=== PATIENT | female | born 1965 | race Caucasian/White ===

== ENCOUNTER → 2017-05-26 09:24 | Outpatient (CLI) | payer SELFPAY ==
--- NOTE | 2017-05-26 09:27 | HPBI_ITS ---
MAMMOGRAPHY - BILATERAL SCREENING REASON FOR EXAM: Female, 51 years old. Routine annual screening examination. PERTINENT HISTORY: Non-contributory. TECHNIQUE: Digital bilateral breast enmanuel (3D mammographic acquisition) in the CC and MLO projections. 2-D mediolateral oblique (MLO) and craniocaudad (CC) views of both breasts were obtained. CAD: Full Field Digital Mammography with Computer Added Detection was performed. COMPARISON: Comparison is made with prior study dated November 02, 2015 and January 31, 2011. FINDINGS: Breast Composition: There are scattered areas of fibroglandular density. There are no dominant masses or suspicious calcifications. Stable benign-appearing bilateral axillary lymph nodes. No other significant abnormalities are identified. There has been no significant change since the prior study. HPBI/SCREENING MAMM (CAD), BILAT IMPRESSION: Stable bilateral screening mammogram. Yearly follow-up mammogram recommended. (A) ASSESSMENT CATEGORY: BIRADS Category 2: Benign. A letter regarding these results will be sent to the patient by the facility within 30 days. Approximately 10% of breast cancers are not detected by mammography. A normal mammogram should not delay biopsy of a clinically suspicious abnormality. [id number] Electronically Signed: Jax Mathis MD at 10:36 EST Tel [phone], Service support ,
== END ==
PROVIDERS: Family Provider Nurse Practitioner Family; PCP Nurse Practitioner Family; Visit Provider Obstetrics & Gynecology
DX: Z12.31 Encounter for screening mammogram for malignant neoplasm of breast (principal)
CPT/HCPCS: 77063; 77067

== ENCOUNTER → 2018-07-27 | Outpatient (CLI) | payer SELFPAY ==
[2018-07-30 13:08] LABS: HPV Reflexed? NOT INDICATED
== END | disposition home or self-care (01) ==
LOC: LABSPEC 13:31
PROVIDERS: Visit Provider Obstetrics & Gynecology
DX: Z12.4 Encounter for screening for malignant neoplasm of cervix (principal)
CPT/HCPCS: 88175; G0145

== ENCOUNTER → 2018-08-03 | Outpatient (CLI) | payer SELFPAY ==
--- NOTE | 2018-08-03 10:40 | BI_ITS ---
MAMMOGRAPHY - BILATERAL SCREENING REASON FOR EXAM: Female, 52 years old. Routine annual screening examination. PERTINENT HISTORY: Non-contributory. TECHNIQUE: Digital bilateral breast enmanuel (3D mammographic acquisition) in the CC and MLO projections. 2-D mediolateral oblique (MLO) and craniocaudad (CC) views of both breasts were obtained. CAD: Full Field Digital Mammography with Computer Added Detection was performed. COMPARISON: Comparison is made with prior study dated May 26, 2017 and November 02, 2015. FINDINGS: Breast Composition: There are scattered areas of fibroglandular density. There are no dominant masses or suspicious calcifications. Stable benign-appearing bilateral axillary lymph nodes. No other significant abnormalities are identified. There has been no significant change since the prior study. BI/SCREENING MAMM (CAD), BILAT IMPRESSION: Stable bilateral screening mammogram. Yearly follow-up mammogram recommended. (A) ASSESSMENT CATEGORY: BIRADS Category 2: Benign. A letter regarding these results will be sent to the patient by the facility within 30 days. Approximately 10% of breast cancers are not detected by mammography. A normal mammogram should not delay biopsy of a clinically suspicious abnormality. [id number] Electronically Signed: Jax Mathis, at 14:14 EDT , Service support ,
== END | disposition home or self-care (01) ==
LOC: OPBI 10:36
PROVIDERS: Referring Provider Obstetrics & Gynecology; Visit Provider Obstetrics & Gynecology
DX: Z12.31 Encounter for screening mammogram for malignant neoplasm of breast (principal)
CPT/HCPCS: 77063; 77067

== ENCOUNTER → 2020-01-04 08:34 | Outpatient (CLI) | payer SELFPAY ==
--- NOTE | 2020-01-04 08:39 | BI_ITS ---
MAMMOGRAPHY - BILATERAL SCREENING REASON FOR EXAM: Female, 54 years old. Routine annual screening examination. PERTINENT HISTORY: Non-contributory. TECHNIQUE: Digital bilateral breast lukasz (3D mammographic acquisition) in the CC and MLO projections. 2-D mediolateral oblique (MLO) and craniocaudad (CC) views of both breasts were obtained. CAD: Full Field Digital Mammography with Computer Added Detection was performed. COMPARISON: Comparison is made with prior examination dated 08/03/2018 and 05/26/2017. FINDINGS: Breast Composition: There are scattered areas of fibroglandular density. There are no dominant masses or suspicious calcifications. Stable benign-appearing bilateral axillary lymph nodes. No other significant abnormalities are identified. There has been no significant change since the prior study. BI/SCREEN MAMM (CAD) W/LUKASZ BILAT IMPRESSION: Stable bilateral screening mammogram. Yearly follow-up mammogram recommended. (A) ASSESSMENT CATEGORY: BIRADS Category 2: Benign. A letter regarding these results will be sent to the patient by the facility within 30 days. Approximately 10% of breast cancers are not detected by mammography. A normal mammogram should not delay biopsy of a clinically suspicious abnormality. [id number] Electronically Signed: Jax Mathis, at 9:48 EDT , Service support ,
== END ==
PROVIDERS: PCP Nurse Practitioner Family; Referring Provider Student in an Organized Health Care Education/Training Program; Visit Provider Student in an Organized Health Care Education/Training Program
DX: Z12.31 Encounter for screening mammogram for malignant neoplasm of breast (principal)
CPT/HCPCS: 77063; 77067

== ENCOUNTER 2021-04-18 05:30 | Day surgery (SDC) | payer SELFPAY ==
--- NOTE | 2021-04-16 12:05 | EKG12_ITS ---
Test Reason : PRE OP Blood Pressure : / mmHG Vent. Rate : 069 BPM Atrial Rate : 069 BPM P-R Int : 134 ms QRS Dur : 070 ms QT Int : 388 ms P-R-T Axes : 023 041 014 degrees QTc Int : 415 ms Normal sinus rhythm Normal ECG Confirmed by JANESSA MAHAN, ELFEGO ([id number]), desk editor OSMEL ZELAYA ([id number]) on 04/17/2021 9:50:52 AM Referred By: Darlene Rm Confirmed By:ELFEGO RIDDLE MD
[2021-04-16 13:37] LABS: Hematocrit 44.3 % (37-47); Hemoglobin 14.2 g/dL (12.0-15.0); Mean Corp Hgb Conc 32.1 g/dL (32-36); Mean Corpuscular Hgb 31.4 pg (27.0-32.0); Mean Platelet Vol. 10.3 fl (6.2-12.0); Platelet Count 344 K/mm3 (150-450); RBC Distribution Width CV 12.3 % (11.6-14.6); RBC Distribution Width SD 44.3 fl (35.1-43.9); Red Blood Count 4.52 M/mm3 (4.2-5.4); White Blood Count 7.9 K/mm3 (4.4-11.0)
[2021-04-16 14:01] LABS: Magnesium 2.4 mg/dL (1.6-2.6)
[2021-04-18] VITALS (13 sets, daily range): BP systolic 93–122; BP diastolic 60–72; PULSE 69–94; RESP 14–16; TEMP 36.3–36.9; O2SAT 91–99; BMI 39.0
[2021-04-18] MEDS: Acetaminophen 500 MG Tablet 1000 MG PO (06:17)
[2021-04-18] MEDS: Celecoxib 200 MG Capsule 400 MG PO (06:17)
[2021-04-18] MEDS: Gabapentin 600 MG Tablet PO (06:17)
[2021-04-18] MEDS: Enoxaparin 40 MG/0.4 ML Syringe SC (06:17)
[2021-04-18 06:25] LABS: Internal QC Validated? YES +Cl - CLEAR BKGD; Pregnancy, Urine Negative Negative
[2021-04-18] MEDS: Lactated Ringers 1,000 ML 40 ML IV (06:48)
--- NOTE | 2021-04-18 06:59 | PCM.HP.BLA ---
History and Physical Date of Admission: 04/18/21 HISTORY OF PRESENT ILLNESS: 55 yo female with history of abnormal uterine bleeding, interfering with daily life. History of ablation. MEDICAL HISTORY: 1. Depression 2. GERD ALLERGIES: NKDA MEDICATIONS HISTORY: 1. Prozac 10 mg capsule, 1 tab daily: 2. omeprazole 20 mg tablet,delayed release, One pill by mouth once a day SURGICAL HISTORY: 1. 2005 - jaw...TMJ surgery 2. 02/27/2016 Dx laparoscopy with ruptured of left ovarian endometrioma and hs, D and C, Evelina ablation Judy Linares M.D. 3. 02/12/2017 small toe on right foot MENSTRUAL HISTORY: LMP Known?- DefiniteAmount/Duration - 5 days, Regularity - Irregular, Frequency - variable days, Prior Menses - 02/20/2021, LMP - 03/04/21, Age Onset Menarche - 14 PAST PREGNANCIES: Total Pregnancies - 4; Full Term Pregnancies - 3; Premature - 0; Abortions, Induced - 0; Abortions, Spontaneous - 1; Ectopics - 0; Multiple Births - 0; Living Children - 3 FAMILY HISTORY: ovarian cancer, [place] SOCIAL HISTORY: Alcohol Use - None Smoking - Never Drug Use - Denies REVIEW OF SYSTEMS: GENERAL - sleep disturbance SKIN - Denies skin changes EYES - wears eye glasses and wears contact lenses EARS - Denies difficulty hearing NOSE - Denies nasal congestion or bleeding MOUTH - Denies sore throat or difficulty swallowing NECK - Denies pain or swelling RESPIRATORY - Denies shortness of breath or wheezing CARDIOVASCULAR - Denies palpitations or chest pain GASTROINTESTINAL - Denies nausea, vomiting, diarrhea, constipation GENITOURINARY - Denies dysuria, frequency of urination, incontinence of urine MUSCULOSKELETAL - Denies joint or muscle pain NEUROLOGICAL - Denies localized numbness or weakness PSYCHIATRIC - On prozac for mood issues ENDOCRINE - fatigue and weight gain HEMATO-IMMUNOLOGIC - Denies excesive bleeding with cuts PHYSICAL EXAMINATION BP- 128/80 Sitting, Right arm, regular cuff Weight- 213.0 lbs Height- 63.0 inch BMI:37.73 CONSTITUTIONAL - NAD, well nourished, and well developed SKIN - No rash, lesions, or ulcers HEENT - Normocephalic, PERRLA, EOMI NECK - No nodes, no nuchal rigidity and thyroid normal size and texture LYMPH NODES - Palpation of lymph nodes in neck and groins within normal limits LUNGS - CTA x2 without wheezes, crackles or rales CARDIAC - Regular rate and rhythm without rubs, murmurs, or gallops ABDOMEN - Without hepatosplenomegaly, distention, masses, rebound, or guarding; normal bowel sounds; no hernias EXTREMITIES - No edema or calf tenderness NEUROLOGICAL - Cranial nerves II-XII grossly intact PSYCHIATRIC - A and O to time, place, person, mood and affect ASSESSMENT: PLAN BY DIAGNOSIS: 1. Abnormal Uterine And Vaginal Bleeding, Unspecified Reports irregular bleeding. Almost daily spotting, mostly brown. Interfering with daily life. Discussed risks/benefits of oophorectomy. Decreases risk of reoperation with oophorectomy. Pt aware that although she is perimenopausal, ovaries continue to excrete low levels of hormone. Elects for oophorectomy. Risks/benefits/alternatives discussed. Risks include, but are not limited to: risk of bleeding to the point of transfusion, infection, injury to surrounding tissue (bowel/bladder/major abdominal vessels), VTE, ICU admission. Consent signed.
[2021-04-18] MEDS: Ondansetron 4 MG/2 ML Vial IV (07:00)
[2021-04-18 07:05] LABS: Bedside Glucose 79 mg/dL (70-110)
--- NOTE | 2021-04-18 07:30 | HYST_PTH ---
PATIENT: KERRI PETER LOC: [facility] [place] U#:[id number] AGE/SX: 55/F ROOM: RE04/18/[address]: Dr. Darlene Rm DO : 1965 BED: DIS: 04/18/2021 SPEC #: [id number] RECD: 04/18/21 15:29 STATUS: SHAUNNA CHARMAINE #: [id number] RADHA: 04/18/21 07:[address]: Darlene Rm DEPT: SURGICAL PATHOLOGY RECD BY: Karime Garcia ENTERED: 04/19/21 11:35 SP TYPE: HYSTERECT OTHR DR: Ramesh Warner, VESSEL ORDINARY SEAMAN-C Tissues: Uterus, NOS Procedures: Surgery Specimen Level V HEADER OPERATION: ERAS, laparoscopic robotic hysterectomy bilateral salpingo-oophorectomy PRE-OP DIAGNOSIS: Abnormal uterine and vaginal bleeding TISSUE SUBMITTED: Uterus, cervix, bilateral fallopian tubes, bilateral ovaries MICROSCOPIC DIAGNOSIS Uterus, hysterectomy: Cervix ? nabothian cysts and mild chronic inflammation. Endometrium ? weakly proliferative to inactive endometrium with focal cystic change. Myometrium ? leiomyomas. Right fallopian tube ? benign paratubal cyst. Right ovary ? corpus luteal cysts and corpora albicantia. Left fallopian tube ? suggestive of hemosalpinx. Left ovary ?cyst consistent with endometriosis. AM:uvaldo 04/22/2021 COMMENT Case has been reviewed in consultation with Dr. Simmons who concurs with the above diagnosis. IDC:AM MICROSCOPIC DESCRIPTION Slides are reviewed. GROSS DESCRIPTION Received in fixative is one container labeled with the patient's name and designated uterus, cervix, bilateral fallopian tubes and bilateral ovaries. The specimen consists of a hysterectomy specimen consisting of uterus with cervix, attached right fallopian tube and ovary and detached left fallopian tube and ovary. The uterus with cervix weighs 110 gm and measures 8 x 6.5 x 5 cm. The serosal surface is jules, glistening. The ectocervical mucosa is unremarkable. The external os is slit-like in contour. The endocervical canal measures 3 cm in length and the endocervical mucosa is jules, glistening and unremarkable. The endometrial cavity is narrow and measures 3.5 cm in length and up to 1 cm in diameter. The endometrium is jules, glistening without any mass lesion and measures <0.1 cm in thickness. Sections of the uterine wall reveal multiple nodular masses. The largest mass measures 2.5 cm in greatest dimension. Sections of these masses reveal jules whorled cut surfaces without areas of hemorrhage, necrosis or cystic degeneration. The uninvolved uterine wall measures up to 2.5 cm in thickness. The right fallopian tube measures 6 cm in length and 0.6 cm in diameter. The fimbrial end is identified. A paratubal cyst is noted measuring 1.5 cm in greatest dimension. The right ovary measures 2.5 x 1.5 x 1 cm. Sections reveal unremarkable cut surfaces. The detached left fallopian tube measures 4.5 cm in length and 0.5 cm in diameter. Obvious fimbrial end is not identified. Sections do not reveal any mass lesion. The ovary is present separate from the fallopian tube and measures 4 x 1.5 x 1 cm. Sections reveal a hemorrhagic area may represent separate from the ovary measuring 1.5 cm in greatest dimension. Branch Service Specialist sections are submitted in 15 cassettes as follows: 1 - anterior cervix, 2??posterior cervix, 3 & 4 - anterior uterine wall, 5 & 6 - posterior uterine wall, nodular masses, 7 - largest nodular mass, 8 - smaller and intermediate sized nodular masses, 9 - right fallopian tube and paratubal cyst, 10 - right ovary, 11 - left fallopian tube, 12 & 13 - hemorrhagic cyst adjacent to left ovary, 14 & 15 - left ovary and adjacent tissue, submitted in entirety. / CHERYL:uvaldo 04/19/2021 TC:1 CPT: 63406
--- NOTE | 2021-04-18 07:41 | DCINST_ITS ---
Discharge Instructions Diet Discharge Diet: No restrictions Activity Discharge Activity: Return to Normal Activity and May Not Drive May resume sexual activity in: 6-8 weeks Weight Bearing Status: Weight bearing as tolerated Dressing / Incision Call your doctor if your incision/area has: Continuous Slow Oozing, Sudden Increased Bleeding, Increased Redness and Foul Smelling Discharge Call your doctor if you observe: Fever of 101 or Higher, Change in Color, Inability to urinate, Inability to have a bowel movement, Using more than 1 pad per hour, Shortness of breath, Fainting spells, Chest pain and Calf discomfort Cleanse incision/area with: Soap & Water Follow Up Care Please Follow Up With: Darlene Rm DO When: 2 week post operative Test Results: Test results from this visit will be discussed in further detail at your follow-up appointment, if applicable. Discharge Plan Admission Primary Reason for Your Visit: Robotic hysterectomy Attending Provider: Darlene Rm Primary Care Provider: Ramesh Warner NP Discharge Orders/Prescriptions Prescriptions: New oxycodone 5 mg tablet 5 mg PO Q6H PRN (Reason: pain (scale score 7-10)) 5 Days Qty: 24 RF: 0 Continued fluoxetine 10 mg Tablet 10 mg PO DAILY RF: 0 omeprazole 20 mg Capsule,Delayed Release(Dr/Ec) 20 mg PO DAILY PRN (Reason: Indigestion) RF: 0 Referrals / Follow Up: Ramesh Warner TESTING MACHINE OPERATOR, TESTING MACHINE OPERATOR-C [Primary Care Provider] - Disposition Disposition (needs filled in before D/C Order can be placed): Home, Self Care
--- NOTE | 2021-04-18 07:41 | OP.PCM_ITS ---
Report of Operation Date of Procedure: 04/18/21 Pre-Operative Diagnosis: Abnormal uterine bleeding Post-Operative Diagnosis: Abnormal uterine bleeding Surgery/Procedure Performed:: Robotic Assisted Total Laparoscopic Hysterectomy, Bilateral Salpingo-oophorectomy, Extensive lysis of adhesions. Cystoscopy. Description of Surgical Findings:: Normal-appearing external genitalia. Normal- appearing cervix. Uterus sounded to 9 cm. Normal-appearing right fallopian tube and ovary. Normal-appearing left fallopian tube and ovary, adhesed extensively to the left pelvic sidewall and left posterior cul-de-sac with dense adhesions. Colon densely adhered to posterior cul-de-sac and posterior vagina/cervix. Left inferior uterine fibroid laterally. On cystoscopy: Intact bladder dome, bilateral ureteral jets. Type of Anesthesia: General Specimen's removed: Uterus, cervix, bilateral Fallopian tubes, Bilateral ovaries Estimated Blood Loss (mL): 250cc Fluids Replaced: 1600cc Description of Procedure: Indications/risks/benefits: This is a 55-year-old female with abnormal uterine bleeding. Decision for robotic assisted total laparoscopic hysterectomy, bilateral salpingo-oophorectomy, cystoscopy was made. All risk, benefits, alternatives were discussed. Risks include but are not limited to: Risk of bleeding to the point of transfusion, infection, injury to surrounding tissue including bowel/bladder/major abdominal vessels, VTE, ICU admission. Patient aware and consented. Procedure: Patient taken to the operating room and placed under general anesthesia. Patient placed in the dorsal lithotomy position and prepped and draped in the usual sterile fashion. Cuadra catheter placed. Weighted speculum placed in the posterior vagina and cervix visualized with right angle retractor. Anterior lip of the cervix grasped with single-tooth tenaculum. Cervix sequentially dilated, uterus sounded. Medium manipulator selected. [id number] stitches placed in the cervix at the 3 and 9 o'clock position. Manipulator placed. Retractors removed. Gloves changed and attention turned to the anterior abdominal wall. Veress needle placed through umbilicus, with normal pressure of 6 mmHg, abdomen insufflated. On the device noted that the flow was 0 however abdomen appeared to be insufflating throughout evenly. Veress needle removed. Incision made in the left upper quadrant and 8 mm air seal trocar placed under direct visualization of the laparoscope, confirming the abdomen had been insufflated successfully. Supraumbilical vertical incision made and trocar placed under direct visualization. Right and left incisions made and robotic trochars placed under direct visualization. Robot docked and instruments placed under direct visualization. Abdomen inspected with findings as noted above. Right round ligament identified coagulated and incised. Right anterior leaf of the broad ligament identified and dissected down towards the vesicouterine peritoneum, bladder flap created allowing the bladder to fall away from the anterior cervix. Right ureter identified. Left round ligament coagulated cut, anterior leaf of the broad ligament dissected and carried down towards the vesicouterine peritoneum. Bladder flap continued and met the right side at midline. Further dissection of the bladder away from the anterior cervix was completed. Right IP ligament coagulated and cut. Dissection continued down the right side of the uterus using coagulation and monopolar cautery. Right uterine arteries iden tified coagulated and cut, allowing them to fall away from the cervix and colpotomy cup. Dense posterior cul-de-sac adhesions of the colon to the posterior cervix were dissected away carefully using blunt and sharp dissection. Extensive adhesiolysis completed. This allowed the colon to fall away from the posterior cervix. Left fallopian tube was grasped and carried towards the fimbriated end, which was buried posteriorly and attached to the left ovary. Careful dissection was completed to dissect the fallopian tube away from the left pelvic sidewall and posterior cul-de-sac using blunt and sharp dissection. Extensive adhesiolysis of dense adhesions completed in this region. A portion of the left fallopian tube was removed using coagulation and monopolar cautery starting at the uterine cornua, moving towards the fimbria. Fallopian tube removed through trocar. Thus allowing better visualization of the left pelvic sidewall and left ovary. Left ovary was further dissected from the posterior cul-de-sac and left side of the uterus. This was completed with blunt and sharp dissection. Left utero ovarian ligament was coagulated and incised. Further dissection allowed the fallopian tube fimbria and ovary to be free, it was then removed using coagulation and cautery from the left side of the uterus. It was placed in the posterior cul-de-sac to be removed at the end of the procedure. Left ureter was covered by bowel adhesions to the left pelvic sidewall. Further dissection on the left side of the uterus was carried down immediately adjacent to the left side of the uterus using coagulation and cautery. Further dissection of the vesicouterine peritoneum was completed on the left side of the cervix. Dissection of the left-sided uterus was carried down to the level of the uterine arteries. Colpotomy was started on the right lateral side of the uterus. Colpotomy was carried partially anteriorly and posteriorly to approximately midline. Approaching the left uterine arteries, the left uterine arteries were coagulated and cut, allowing them to fall away from the colpotomy. Colpotomy was then continued circumferentially, freeing the uterus and cervix. Uterus cervix and right fallopian tube and ovary were removed from the vagina. Left portion of the fallopian tube and ovary were then removed through the vagina. Pelvis was suction irrigated. Vagina closed with a V-Loc stitch starting at the right corner carried towards the left. Pelvis suction irrigated again. Tana placed along with the cuff closure. Hemostasis noted. Abdomen desufflated. At this time cystoscopy was completed. Cuadra catheter removed. Cystoscope placed, noting intact bladder dome and bilateral ureteral jets. Cystoscope removed. Trochars removed. Skin closed with subcuticular stitch and skin glue. At the end of the procedure all needle, lap, sponge counts were correct. UOP: 150cc Complications None
[2021-04-18] MEDS: Cefazolin 2 GM in 0.9% Normal Saline 100 ML IV (07:48)
[2021-04-18] MEDS: Lactated Ringers 1,000 ML 120 ML IV (09:16)
[2021-04-18] MEDS: HYDROcodone Bitartrate/Apap 5/325 Tablet PO (14:10)
[2021-04-18] MEDS: Scopolamine 1mg/72hr Patch 1 PATCH TD (17:20)
== END 2021-04-18 23:59 | disposition home or self-care (01) ==
LOC: SDC 05:32 → AC 05:33
PROVIDERS: Anesthesiology; PCP Nurse Practitioner Family; Referring Provider Student in an Organized Health Care Education/Training Program; Visit Provider Student in an Organized Health Care Education/Training Program
PROC: 0UT94ZZ Resection of Uterus, Percutaneous Endoscopic Approach (ICD-10-PCS; CPT 58571; principal; 2021-04-18 07:10)
DX: N93.9 Abnormal uterine and vaginal bleeding, unspecified (principal); N88.8 Other specified noninflammatory disorders of cervix uteri; N83.8 Other noninflammatory disorders of ovary, fallopian tube and broad ligament; N83.11 Corpus luteum cyst of right ovary; N83.291 Other ovarian cyst, right side; N80.1 Endometriosis of ovary; N73.6 Female pelvic peritoneal adhesions (postinfective); K21.9 Gastro-esophageal reflux disease without esophagitis; F32.A Depression, unspecified; Z79.899 Other long term (current) drug therapy
CPT/HCPCS: 58571; S2900; 00840; 36415; 81025; 82962; 83735; 85027; 86850; 86900; 86901; 88307; 93005; J7120; J2405

== ENCOUNTER → 2021-11-19 | Outpatient (CLI) | payer SELFPAY ==
--- NOTE | 2021-11-19 09:29 | BI_ITS ---
MAMMOGRAPHY - BILATERAL SCREENING REASON FOR EXAM: Female, 56 years old. Routine annual screening examination. PERTINENT HISTORY: Non-contributory. TECHNIQUE: Digital bilateral breast lukasz (3D mammographic acquisition) in the CC and MLO projections. 2-D mediolateral oblique (MLO) and craniocaudad (CC) views of both breasts were obtained. CAD: Full Field Digital Mammography with Computer Added Detection was performed. COMPARISON: Comparison is made with prior study dated 01/04/2020 and 08/03/2018. FINDINGS: Breast Composition: There are scattered areas of fibroglandular density. There are no dominant masses or suspicious calcifications. Stable small benign appearing bilateral axillary lymph nodes. No other significant abnormalities are identified. There has been no significant change since the prior study. BI/SCRN MAMM (CAD)W/LUKASZ BILAT IMPRESSION: Stable bilateral screening mammogram. Yearly follow-up mammogram recommended. (A) ASSESSMENT CATEGORY: BIRADS Category 2: Benign. A letter regarding these results will be sent to the patient by the facility within 30 days. Approximately 10% of breast cancers are not detected by mammography. A normal mammogram should not delay biopsy of a clinically suspicious abnormality. [id number] Electronically Signed: Jax Mathis MD at 10:20 EDT ,
== END | disposition home or self-care (01) ==
PROVIDERS: PCP Nurse Practitioner Family; Visit Provider Student in an Organized Health Care Education/Training Program
DX: Z12.31 Encounter for screening mammogram for malignant neoplasm of breast (principal)
CPT/HCPCS: 77063; 77067

== ENCOUNTER → 2022-09-26 | Outpatient (CLI) | payer SELFPAY ==
[2022-09-26 16:33] LABS: Absolute Lymphocyte Count 1.52 X10^3/uL (0.83-4.51); Absolute Neutrophil Count 6.1 X10^3/uL (2.0-7.7); Basophil# 0.03 X10^3/uL; Basophil% 0.4 % (0-1); Eosinophil# 0.06 X10^3/uL; Eosinophils% 0.7 % (0-5); Hematocrit 43.8 % (37-47); Hemoglobin 13.6 g/dL (12.0-15.0); Lymphocyte # 1.52 X10^3/ul (0.83-4.51); Lymphocyte % 18.7 % (19-41); Mean Corp Hgb Conc 31.1 g/dL (32-36); Mean Corpuscular Hgb 30.8 pg (27.0-32.0); Mean Corpuscular Volume 99.3 fL (81-99); Mean Platelet Vol. 9.9 fl (6.2-12.0); Monocyte# 0.37 X10^3/uL; Monocyte% 4.5 % (0-10); NRBC Flagged by Analyzer 0 % (0-5); Neutrophil # 6.13 X10^3/uL (2.7-7.7); Neutrophil % 75.3 % (47-70); Platelet Count 358 K/mm3 (150-450); RBC Distribution Width CV 13.2 % (11.6-14.6); RBC Distribution Width SD 48.8 fl (35.1-43.9); Red Blood Count 4.41 M/mm3 (4.2-5.4); White Blood Count 8.1 K/mm3 (4.4-11.0)
[2022-09-26 16:50] LABS: Cholesterol 207 mg/dL (200); Hemoglobin A1c 5.8 % (3.8-5.6); High Density Lipoprotein 51 mg/dL; Triglycerides 162 mg/dL; Very Low Density Lipoprotein 32 mg/dL (5-40)
== END | disposition home or self-care (01) ==
LOC: WOBLAB 16:01
PROVIDERS: PCP Nurse Practitioner Family; Visit Provider Nurse Practitioner Women's Health
DX: N95.1 Menopausal and female climacteric states (principal)
CPT/HCPCS: 36415; 80061; 83036; 85025

== ENCOUNTER → 2022-11-21 | Outpatient (CLI) | payer SELFPAY ==
--- NOTE | 2022-11-21 08:50 | BI_ITS ---
MAMMOGRAPHY - BILATERAL SCREENING REASON FOR EXAM: Female, 57 years old. Routine annual screening examination. PERTINENT HISTORY: Mother with breast cancer. TECHNIQUE: Digital bilateral breast lukasz (3D mammographic acquisition) in the CC and MLO projections. 2-D mediolateral oblique (MLO) and craniocaudad (CC) views of both breasts were obtained. CAD: Full Field Digital Mammography with Computer Added Detection was performed. COMPARISON: Screening mammogram from 11/19/2021, 01/04/2020. FINDINGS: Breast Composition: There are scattered areas of fibroglandular density. There are no dominant masses or suspicious calcifications. Stable small benign-appearing bilateral axillary lymph nodes. No other significant abnormalities are identified. There has been no significant change since the prior study. BI/SCRN MAMM (CAD)W/LUKASZ BILAT IMPRESSION: Stable bilateral screening mammogram. Yearly follow-up mammogram recommended. (A) ASSESSMENT CATEGORY: BIRADS Category 2: Benign. A letter regarding these results will be sent to the patient by the facility within 30 days. Approximately 10% of breast cancers are not detected by mammography. A normal mammogram should not delay biopsy of a clinically suspicious abnormality. Electronically Signed: Gerber Slaughter DO at 13:26 EDT ,
== END | disposition home or self-care (01) ==
PROVIDERS: PCP Nurse Practitioner Family; Referring Provider Student in an Organized Health Care Education/Training Program; Visit Provider Student in an Organized Health Care Education/Training Program
DX: Z12.31 Encounter for screening mammogram for malignant neoplasm of breast (principal); Z80.3 Family history of malignant neoplasm of breast
CPT/HCPCS: 77063; 77067

== ENCOUNTER → 2024-06-30 | Outpatient (CLI) | payer SELFPAY ==
--- NOTE | 2024-06-30 12:10 | EKG12_ITS ---
Test Reason : PRE OP Blood Pressure : */* mmHG Vent. Rate : 72 BPM Atrial Rate : 72 BPM P-R Int : 140 ms QRS Dur : 76 ms QT Int : 402 ms P-R-T Axes : 32 41 20 degrees QTcB Int : 440 ms Normal sinus rhythm Normal ECG Confirmed by ADRIAN MAHAN, LINDA ([id number]), development editor ANH NICOLE ([id number]) on 07/01/2024 9:31:09 AM Referred By: Abbi Trivedi Confirmed By: LINDA CAMPBELL MD
[2024-06-30 12:59] LABS: Mean Corp Hgb Conc 32.5 g/dL (32-36); Mean Corpuscular Hgb 31.4 pg (27.0-32.0); Mean Corpuscular Volume 96.6 fL (81-99); Mean Platelet Vol. 9.8 fl (6.2-12.0); Platelet Count 318 K/mm3 (150-450); RBC Distribution Width CV 12.9 % (11.6-14.6); RBC Distribution Width SD 45.7 fl (35.1-43.9); Red Blood Count 4.14 M/mm3 (4.2-5.4)
[2024-06-30 14:14] LABS: Anion Gap 12 (5-15); BUN 11 mg/dL (4-19); BUN/Creat Ratio 16.3 RATIO (10-20); Calcium,Total 9.1 mg/dL (7.6-11.0); Chloride 104 mmol/L (98-108); Creatinine, Serum 0.69 mg/dL (0.70-1.20); EST Glomerular Filtration Rate 101 (>60); Glucose 74 mg/dL (70-99); Potassium 4.1 mmol/L (3.3-5.1); Sodium Level 138 mmol/L (133-145)
== END | disposition home or self-care (01) ==
PROVIDERS: PCP Nurse Practitioner Family
DX: Z01.818 Encounter for other preprocedural examination (principal); Z01.810 Encounter for preprocedural cardiovascular examination
CPT/HCPCS: 36415; 80048; 85027; 93005